=== PATIENT | male | born 1980 | race Caucasian/White ===

== ENCOUNTER 2022-03-28 07:14 | Outpatient (CLI) | payer BC, MEDICAID, SELFPAY ==
[2022-03-28 15:04] LABS: Albumin* 4.3 g/dL (3.3-5.0); Chloride* 106 mmol/L (96-114)
[2022-03-28 15:05] LABS: Potassium* 4.3 mmol/L (3.6-5.1); Sodium* 138 mmol/L (135-149)
[2022-03-28 15:07] LABS: Aspartate Amino Transferase* 63 U/L (12-35); Bilirubin Total* 1.2 mg/dL (0.1-1.5); Blood Urea Nitrogen* 18 mg/dL (5-24); Carbon Dioxide* 20 mmol/L (20-32); Cholesterol* 128 mg/dL (90-199); Creatinine* 1.2 mg/dL (0.5-1.5); Estimated Glomerular Filt Rate 78 ml/min; Glucose* 166 mg/dL (60-115); Total Protein* 7.3 g/dL (6.0-8.3)
[2022-03-28 15:08] LABS: Alanine Aminotransferase* 92 U/L (4-50); Alkaline Phosphatase* 53 U/L (40-150); Calcium* 9.2 mg/dL (8.4-10.6); HDL Cholesterol* 29 mg/dL (>=40); LDL Cholesterol Calculated 50 mg/dL (<100); Triglycerides* 245 mg/dL (40-149)
[2022-03-28 15:10] LABS: Total Protein Urine < 5 mg/dL
[2022-03-28 15:12] LABS: Creatinine Urine 202.4 mg/dL
[2022-03-28 15:13] LABS: Microalbumin Creatinine Ratio 0 mg/g (0-30); Microalbumin Urine 1 mg/dL
[2022-03-28 15:14] LABS: Creatinine Urine 207.7 mg/dL
[2022-03-28 15:44] LABS: Vitamin B12* 498 pg/mL (243-894)
== END 2022-03-28 07:15 | disposition home or self-care (01) ==
PROVIDERS: PCP Family Medicine; Visit Provider Family Medicine
DX: Z00.00 Encounter for general adult medical examination without abnormal findings (principal); E11.9 Type 2 diabetes mellitus without complications; I10 Essential (primary) hypertension; E04.1 Nontoxic single thyroid nodule; E66.9 Obesity, unspecified; E78.5 Hyperlipidemia, unspecified; Z79.899 Other long term (current) drug therapy
CPT/HCPCS: 80053; 80061; 82043; 82570; 82607; 84156

== ENCOUNTER 2022-04-06 14:25 | Outpatient (CLI) | payer BC, MEDICAID, SELFPAY ==
--- NOTE | 2022-04-06 15:00 | CRLHL7_ITS ---
For Patients: As a result of the Cures Act, medical imaging exams and procedure reports are released immediately into your electronic medical record. You may view this report before your referring provider. If you have questions, please contact your health care provider. INDICATION: Known biopsy-proven ectopic thyroid tissue left neck. TECHNIQUE: Directed thyroid ultrasound. COMPARISON: September 17, 2020. FINDINGS: Again noted is a circumscribed rounded or slightly oval shaped soft tissue nodule superior to left thyroid lobe measuring 2.2 x 1.8 x 1.9 cm previously measuring 2.1 x 2.1 x 1.6 cm. This is minimally larger. The right thyroid lobe measures 5.2 x 2.0 x 2.8 cm. The left thyroid lobe measures 5.5 x 2.0 x 2.5 cm. The isthmus measures 0.4 cm in thickness. Small solid nodules in the right thyroid gland. Within the superior right thyroid lobe there is an 8 x 5 x 7 mm solid nodule. Within the inferior right thyroid lobe there is a 1.5 x 0.8 x 1.0 cm solid nodule. Within the left thyroid lobe there is a 2.8 x 1.2 x 1.6 cm left upper lobe largely solid nodule previously measuring 2.9 x 1.3 x 2.1 cm. Previously this measured 2.9 x 1.3 x 2.1 cm. Tiny nodule superior left thyroid gland measuring 1.4 x 0.8 x 0.9 cm, nonspecific but not convincingly present previously. IMPRESSION : 1. Stable to minimally larger biopsy-proven ectopic thyroid tissue/nodule superior to the left thyroid gland measuring 2.2 x 1.8 x 1.9 cm previously 2.1 x 2.1 x 1.6 cm. 2. Relatively stable nodules in each thyroid gland with a new approximately 1.4 cm nodule in the superior left thyroid lobe. Dictated by Jose Juan Parker MD @ 04/08/2022 10:10:12 AM (Electronically Signed)
== END 2022-04-06 14:26 | disposition home or self-care (01) ==
LOC: US 14:28
PROVIDERS: PCP Family Medicine; Visit Provider Family Medicine
DX: E04.1 Nontoxic single thyroid nodule (principal)
CPT/HCPCS: 76536

== ENCOUNTER 2022-05-07 19:02 | Outpatient (CLI) | payer BC, MEDICAID, SELFPAY ==
--- NOTE | 2022-05-24 12:21 | W.PM.SLEEP ---
Sleep Study Details Details Interpreting Provider: Naveen Ramey MD Date of Sleep Study: 05/07/22 Sleep Study Details: STUDY TYPE: Home ? BMI:? 40.5 ORDERING PROVIDER:Ebonie Santamaria INDICATION:? Concerns about sleep apnea ? SLEEP SUMMARY:? 280 monitored minutes RESPIRATORY SUMMARY:? AHI is 19.9, left lateral 24.5, right lateral 16.9 Low oxygen 84 13.9% of study oxygen less than 90% Snoring 14.4% PERIODIC LIMB MOVEMENTS OF SLEEP:? Not recorded CARDIAC:? Range 54-111, mean 79.5 beats per minute IMPRESSION:? Moderate obstructive sleep apnea Significant hypo oxygenation noted during study RECOMMENDATION: AutoSet CPAP pressure 4-17 with close follow-up. Once effective CPAP is established would recommend an overnight oximetry study to determine if the patient would benefit from nocturnal oxygen.
== END 2022-05-07 19:03 | disposition home or self-care (01) ==
LOC: SLEEP 19:03
PROVIDERS: PCP Family Medicine; Visit Provider Family Medicine
DX: G47.33 Obstructive sleep apnea (adult) (pediatric) (principal)
CPT/HCPCS: 95806

== ENCOUNTER 2023-05-08 12:57 | Outpatient (CLI) | payer BC, MEDICAID, SELFPAY | END 2023-05-08 12:58 | disposition home or self-care (01) | PROVIDERS: PCP Family Medicine; Visit Provider Family Medicine | DX: E11.69 Type 2 diabetes mellitus with other specified complication (principal); I10 Essential (primary) hypertension; E04.1 Nontoxic single thyroid nodule; E66.9 Obesity, unspecified; Z11.59 Encounter for screening for other viral diseases | CPT/HCPCS: 80053; 80061; 82043; 82570; 82607; 84443; 86803 ==

== ENCOUNTER 2024-06-10 13:01 | Outpatient (CLI) | payer BC, SELFPAY | END 2024-06-10 13:02 | disposition home or self-care (01) | LOC: NFLDREF 06-11 01:59 | PROVIDERS: PCP Family Medicine; Referring Provider Family Medicine; Visit Provider Family Medicine | DX: E11.9 Type 2 diabetes mellitus without complications (principal); I10 Essential (primary) hypertension; E78.5 Hyperlipidemia, unspecified; E04.1 Nontoxic single thyroid nodule; Z79.84 Long term (current) use of oral hypoglycemic drugs; Z79.85 Long-term (current) use of injectable non-insulin antidiabetic drugs; Z13.21 Encounter for screening for nutritional disorder | CPT/HCPCS: 80053; 80061; 82043; 82570; 82607; 84443 ==